=== PATIENT | male | born 1995 | race Asian ===

== ENCOUNTER 2017-10-11 23:29 | Emergency (ER) | payer OTHER ==
[2017-10-11 23:34] VITALS: RESP 16; TEMP 98.2
[2017-10-12 00:01] VITALS: BP 143/90; PULSE 83; O2SAT 98
[2017-10-12] MEDS ORDERED: HYDROCODONE/APAP 5/325 TAB PO ONE (00:15)
--- NOTE | 2017-10-12 00:18 | EDPHY ---
H & P Stated Complaint: right hand injury Source: Patient Exam Limitations: No limitations - Personal History Current Tetanus/Diphtheria Vaccine: Yes Current Tetanus Diphtheria and Acellular Pertussis (TDAP): Yes - Medical/Surgical History Hx Asthma: No Hx Chronic Respiratory Disease: No Hx Diabetes: No Hx Cardiac Disease: No Hx Renal Disease: No Hx Cirrhosis: No Hx Alcoholism: No Hx HIV/AIDS: No Hx Splenectomy or Spleen Trauma: No Other PMH: DENIES PMH. DENIES PSH - Social History Smoking Status: Current every day smoker Time Seen by Provider: 10/12/17 00:15 HPI/ROS: HPI: This is a 22-year-old male presents with Chief Complaint: Right wrist injury Location: Right wrist Quality: Injury Duration: 5 8 hours prior to arrival Signs and Symptoms: No bleeding, no radiation, no numbness, no weakness, no tingling, + decreased range of motion, + swelling, + pain Timing: Sudden, gradually worsening Severity: Moderate to severe Context: Patient is right-hand dominant was playing basketball earlier today when he accidentally tripped and fell directly on the lateral aspect of his right wrist as well as his right thigh. He went home and took some ibuprofen and started to feel better. When he went to bed this evening his right wrist began to hurt more to the point that the pain was now 7/10, nonradiating in nature and with decreased range of motion. Modifying Factors: See above Comment: ROS: see HPI Constitutional: No fever, no chills, no weight loss Eyes: No blurred vision Respiratory: No shortness of breath, no cough Cardiovascular: No chest pain Gastrointestinal: No nausea, no vomiting no diarrhea Genitourinary: No dysuria Extremities: No myalgias Neurologic: No weakness, no numbness Skin: No rashes Hematologic: No bruising, no bleeding MEDICAL/SURGICAL/SOCIAL HISTORY: Medical history: Generally healthy. Does not take any regular medications. Surgical history: Denies Social history: Student CONSTITUTIONAL: Well-developed well-nourished young adult male, awake and alert , no obvious distress HEENT: Atraumatic and normocephalic, PERRL, EOMI. Tympanic membranes clear. Oropharynx clear, no exudate and moist pink mucosa. Airway patent. No lymphadenopathy. No meningismus. Cardiovascular: Normal S1/S2, regular rate, regular rhythm, without murmur rub or gallop. PULMONARY/CHEST: Symmetrical and nontender. Clear to auscultation bilaterally. Good air movement. No accessory muscle usage. ABDOMEN: Soft, nondistended, nontender, no rebound, no guarding, no peritoneal signs, no masses or organomegaly. No CVAT. EXTREMITIES: 2/2 radial pulses, strength 5/5, RIGHT WRIST: Extension to 40, flexion to 40, radial deviation to 05 degree, ulnar deviation to 10, no scaphoid tenderness, + tenderness over ulnar styloid, no tenderness over radial styloid. no deformities, no clubbing, no cyanosis or edema. NEUROLOGICAL: no focal neuro deficits. GCS 15. Light touch sensation intact. SKIN: Warm and dry, no erythema. no rash. Good capillary refill. (Angelika Tillman) Constitutional: Initial Vital Signs Temperature (C) 36.8 C 10/11/17 23:31 Heart Rate 86 10/11/17 23:31 Respiratory Rate 16 10/11/17 23:31 Blood Pressure 150/93 H 10/11/17 23:31 O2 Sat (%) 97 10/11/17 23:31 O2 Delivery Mode Room Air Allergies/Adverse Reactions: No Known Allergies Allergy (Verified 10/11/17 23:34) Home Medications: Medication Instructions Recorded NK [No Known Home Meds] 10/11/17 Medical Decision Making - Diagnostics Imaging Results: Imaging Impressions Wrist X-Ray 10/11/17 23:51 Impression: No acute osseous findings. ED Course/Re-evaluation: PHYSICIAN DOCUMENTATION: The patient was evaluated and managed by the Physician Office Machine Punch Operator. My co- signature indicates that I have reviewed this chart and I agree with the findings and plan of care as documented. I am the secondary supervising physician. (Terese Julian) Wrist x-ray and oral medications ordered Ice pack applied wrist xray my read via PACS no fracture/soft tissue swelling No signs of neurovascular compromise/tenting of skin/compartment syndrome/ extremities and joints examined above and below area of concern and are neurovascularly intact. (Angelika Tillman) Differential Diagnosis: Differential diagnosis includes but is not limited to contusion, sprain, nerve injury, ligament injury, radial fracture, ulnar fracture, mid hand fracture. (Angelika Tillman) - Data Points Medications Given: Discontinued Medications Hydrocodone Bitart/Acetaminophen ([place] 5/325) 1 tab PO EDNOW ONE Stop: 10/12/17 00:16 Last Admin: 10/12/17 00:21 Dose: 1 tab Departure - Departure Disposition: Home, Routine, Self-Care Clinical Impression: Sprain of right wrist Qualifiers: Encounter type: initial encounter Qualified Code(s): S63.501A - Unspecified sprain of right wrist, initial encounter Condition: Good Instructions: RICE Therapy (ED), Wrist Sprain (ED) Additional Instructions: Wear the splint until pain free or until follow up with Orthopedics. Take ibuprofen 600 mg every 8 hours with food as needed for pain. Apply ice for 30 minutes at a time; 2-3 times per day for the next 1-2 days. Follow up with Orthopedics in 7-10 days if symptoms persist at which time they will evaluate and recommend with you if conservative management versus further diagnostic imaging is indicated. The x-rays obtained in the emergency department today demonstrate no evidence of an obvious fracture. Sometimes fractures are not obvious on the initial set of x-rays performed in the ED. For this reason, you should have repeat x-rays performed in 7-10 days if you are having any pain exclude the possibility of an occult fracture. Referrals: ZULY UMANA [Primary Care Provider] - As per Instructions Luke Dallas MD [Medical Doctor] - As per Instructions
== END 2017-10-12 00:45 | disposition home or self-care (01) ==
DX: S63.501A Unspecified sprain of right wrist, initial encounter (principal); F17.200 Nicotine dependence, unspecified, uncomplicated; W01.0XXA Fall on same level from slipping, tripping and stumbling without subsequent striking against object, initial encounter; Y93.67 Activity, basketball
CPT/HCPCS: L3908